=== PATIENT | female | born 2000 | race Caucasian/White ===

== ENCOUNTER 2022-03-16 22:37 | Emergency (ER) | payer OTHER ==
[~2022-03-16] VITALS: Ht 154.9 cm; Wt 63.5 kg
[2022-03-16 22:43] VITALS: BP 104/55
--- NOTE | 2022-03-16 23:02 | NUR ---
URINE COLLECTED AND SENT TO LAB
[2022-03-16 23:06] LABS: APPEARANCE,URINE CLEAR (CLEAR); BILIRUBIN,URINE NEGATIVE (NEGATIVE); BLOOD, URINE NEGATIVE (NEGATIVE); COLOR,URINE YELLOW (YELLOW); LEUKOCYTE ESTERASE ,URINE 2+ (NEGATIVE); NITRITE, URINE NEGATIVE (NEGATIVE); UGLUCOSE NEGATIVE (NEGATIVE)
[2022-03-17 01:20] VITALS: BP 104/55
--- NOTE | 2022-03-17 01:22 | NUR ---
Patient discharged with v/s stable. Written and verbal after care instructions given and explained. Patient verbalized understanding. Ambulatory with steady gait. All questions addressed prior to discharge. Advised to follow up with PMD.
[2022-03-17 03:55] LABS: RBC,URINE 0-5 /HPF (0-5)
== END 2022-03-17 01:20 | disposition home or self-care (01) ==
LOC: MED 22:37
DX: N83.202 Unspecified ovarian cyst, left side (principal); Z88.5 Allergy status to narcotic agent
CPT/HCPCS: 76830; 81001; 81025; 87086; 99284; Q0092